=== PATIENT | male | born 1995 | race Hispanic/Latino ===

== ENCOUNTER 2017-07-11 10:59 | Emergency (ER) | payer SELFPAY ==
[~2017-07-11] VITALS: Ht 172.7 cm; Wt 66.8 kg
[2017-07-11 11:02] VITALS: BP 115/71; PULSE 88; RESP 16; O2SAT 99
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
--- NOTE | 2017-07-11 13:34 | DRSVH ---
PROCEDURE: X-RAY LEFT ANKLE, MINIMUM THREE VIEWS ([id number]) INDICATIONS: injury TECHNIQUE: 3 views of the ankle were acquired. COMPARISON: None. FINDINGS: Bones: There is a minimally displaced, obliquely oriented fracture through the distal fibula. Soft tissues: No tibiotalar joint effusion. Achilles tendon appears normal. There is mild lateral m alleolar narrowing. IMPRESSION: Minimally displaced fibular fracture and associated soft tissue swelling. Dictated by: Nanette Godoy M.D. on 07/11/2017 at 13:31 Approved by: Nanette Godoy M.D. on 07/11/2017 at 13:31
[2017-07-11 14:35] VITALS: BP 129/79; PULSE 94; RESP 16; O2SAT 97
== END 2017-07-11 14:30 | disposition home or self-care (01) ==
LOC: SED 10:59
DX: S82.832A Other fracture of upper and lower end of left fibula, initial encounter for closed fracture (principal); W22.8XXA Striking against or struck by other objects, initial encounter; Y93.9 Activity, unspecified; Y92.9 Unspecified place or not applicable; Y99.9 Unspecified external cause status